=== PATIENT | female | born 1990 | race Caucasian/White ===

== ENCOUNTER 2017-07-15 02:39 | Emergency (ER) | payer BC, MEDICAID ==
[~2017-07-15] VITALS: Ht 167.6 cm; Wt 76.0 kg
[2017-07-15 06:02] LABS: BASOPHILS % 0.4 % (0.0-2.0); HEMATOCRIT. 37.2 % (36.0-48.0); HEMOGLOBIN. 12.7 g/dL (12.0-16.0); LYMPHOCYTES % 36.7 % (20.0-50.0); MEAN CORPUSCULAR HEMOGLOBIN 30.3 pg (28.0-32.0); MEAN CORPUSCULAR VOLUME 88.8 fL (81.0-99.0); MEAN PLATELET VOLUME 8.9 fl (7.4-10.4); NEUTROPHILS % 50.9 % (40.0-76.0); PLATELET 255 x1000/uL (130-400); RED BLOOD CELL COUNT 4.19 mill/uL (4.2-5.4); RED CELL DISTRIBUTION WIDTH 13.2 % (11.6-14.6)
[2017-07-15 06:07] LABS: CHLORIDE 107 mEq/L (98-107); HCG SCREEN NEGATIVE
[2017-07-15 11:18] VITALS: BP 129/66
== END 2017-07-15 11:19 | disposition home or self-care (01) ==
LOC: ER 02:39
DX: R07.89 Other chest pain (principal); M54.2 Cervicalgia; R68.84 Jaw pain; K21.9 Gastro-esophageal reflux disease without esophagitis; G45.9 Transient cerebral ischemic attack, unspecified
CPT/HCPCS: 36415; 70450; 71045; 76705; 80053; 83690; 84484; 84703; 85025; 93005; 99285; Z7610